=== PATIENT | male | born 1975 | race Caucasian/White ===

== ENCOUNTER → 2019-01-25 | Outpatient (CLI) | payer OTHER ==
[~2019-01-25] MED LIST: GLIP5 PO; METF500 PO
== END | disposition home or self-care (01) ==
LOC: LAB 18:01 → LAB SHORT 18:01
DX: K13.70 Unspecified lesions of oral mucosa (principal)
CPT/HCPCS: 87529

== ENCOUNTER 2024-09-04 20:02 | Emergency (ER) | payer OTHER ==
[~2024-09-04] VITALS: Ht 200.7 cm; Wt 130.6 kg
[2024-09-05] MEDS ORDERED: Trimethoprim/Sulfamethoxazole DS Tab PO ONE (03:30)
[2024-09-05] MEDS ORDERED: Diphth,Pertuss(Acell),Tet Vac 0.5 ML VIAL IM ONE (03:30)
[2024-09-05] MEDS ORDERED: SULTRIDS PO (03:31)
[2024-09-05 04:06] VITALS: BP 147/97
== END 2024-09-05 04:04 | disposition home or self-care (01) ==
LOC: ER 20:02
DX: L03.221 Cellulitis of neck (principal); L73.1 Pseudofolliculitis barbae; E11.9 Type 2 diabetes mellitus without complications; Z23 Encounter for immunization; Z68.32 Body mass index [BMI] 32.0-32.9, adult; Z79.84 Long term (current) use of oral hypoglycemic drugs; Z79.899 Other long term (current) drug therapy
CPT/HCPCS: 10060; 90471; 90715; 99283; A9270

== ENCOUNTER → 2024-10-04 | Outpatient (CLI) | payer OTHER ==
[~2024-10-04] MED LIST changes: +SULTRIDS PO
== END ==
LOC: LAB SHORT 15:38 → LAB 15:38
DX: L02.11 Cutaneous abscess of neck (principal)
CPT/HCPCS: 87070; 87075; 87077; 87147; 87186; 87205